=== PATIENT | female | born 1985 | race Caucasian/White ===

== ENCOUNTER 2018-02-05 20:20 | Inpatient (IN) | payer MEDICAID, OTHER ==
--- NOTE | 2018-02-05 20:44 | C.PDOC ---
History Of Present Illness <Darwin Lawler - Last Filed: 02/05/18 22:30> <MartymatthiasEfren - Last Filed: 02/06/18 01:02> 33-year-old josue benavides, presents to the emergency department pre-screened for detox from alcohol. Patient denies nausea/vomiting, SI/HI, or any other associated symptoms. Last drink was this morning. No other complaints at this time. ( Darwin Lawler) History Per: Patient History/Exam Limitations: no limitations Current Symptoms Are (Timing): Still Present <Darwin Lawler - Last Filed: 02/05/18 22:30> <Efren Green - Last Filed: 02/06/18 01:02> Time Seen by Provider: 02/05/18 20:31 Chief Complaint (Nursing): Substance Abuse Past Medical History Reviewed: Historical Data, Nursing Documentation, Vital Signs Surgical History: Cholecystectomy Family History: States: No Known Family Hx - Social History Hx Alcohol Use: Yes Hx Substance Use: Yes - Immunization History Hx Tetanus Toxoid Vaccination: No Hx Influenza Vaccination: No Hx Pneumococcal Vaccination: No <Darwin Lawler - Last Filed: 02/05/18 22:30> Vital Signs: Last Vital Signs Temp 98.6 F 02/05/18 23:45 Pulse 93 H 02/05/18 23:45 Resp 16 02/05/18 23:45 BP 112/75 02/05/18 23:45 Pulse Ox 98 02/05/18 23:45 Review Of Systems Constitutional: Negative for: Fever, Chills Cardiovascular: Negative for: Chest Pain, Palpitations Respiratory: Negative for: Shortness of Breath Gastrointestinal: Negative for: Nausea, Vomiting Musculoskeletal: Negative for: Back Pain Neurological: Negative for: Weakness, Numbness Psych: Negative for: Depression, Suicidal ideation, Withdrawal <Ciera Lawleril - Last Filed: 02/05/18 22:30> Physical Exam - Physical Exam Appears: Non-toxic, No Acute Distress Skin: Normal Color, Warm, Dry Head: Atraumatic, Normacephalic Eye(s): bilateral: Normal Inspection, PERRL, EOMI Nose: Normal Oral Mucosa: Moist Lips: Normal Appearing Neck: Normal ROM Cardiovascular: Rhythm Regular, No Murmur Respiratory: Normal Breath Sounds, No Decreased Breath Sounds, No Accessory Muscle Use Gastrointestinal/Abdominal: Soft, No Tenderness Back: Normal Inspection Extremity: Normal ROM, No Deformity, No Swelling Neurological/Psych: Oriented x3, Normal Speech <Darwin Lawler - Last Filed: 02/05/18 22:30> ED Course And Treatment - Laboratory Results Result Diagrams: 02/05/18 20:45 02/05/18 20:45 O2 Sat by Pulse Oximetry: 99 (RA) Pulse Ox Interpretation: Normal <Darwin Lawler - Last Filed: 02/05/18 22:30> - Laboratory Results Result Diagrams: 02/05/18 20:45 02/05/18 20:45 <Efren Green - Last Filed: 02/06/18 01:02> Medical Decision Making <Darwin Lawler - Last Filed: 02/05/18 22:30> <NormaValdi - Last Filed: 02/06/18 01:02> Medical Decision Making: Patient is medically cleared and stable for discharge. (Darwin Lawler) Disposition <Darwin Lawler - Last Filed: 02/05/18 22:30> Discussed With DrMiguelito: Danisha Albrecht Comment: accepted the pt on his service and took over the care at 1 AM Doctor Will See Patient In The: Hospital Counseled Patient/Family Regarding: Studies Performed, Diagnosis - Disposition Disposition Time: 01:01 - POA Present On Arrival: None <Efren Green - Last Filed: 02/06/18 01:02> - Disposition Disposition: HOSPITALIZED Condition: FAIR Forms: [facility] ([place]iberian) - Clinical Impression Clinical Impression: Alcohol abuse - Scribe Statement The provider has reviewed the documentation as recorded by the Scribe (Janna Calvert) <Darwin Lawler - Last Filed: 02/05/18 22:30> <Efren Green - Last Filed: 02/06/18 01:02> - Scribe Statement All medical record entries made by the Scribe were at my direction and personally dictated by me. I have reviewed the chart and agree that the record accurately reflects my personal performance of the history, physical exam, medical decision making, and the department course for this patient. I have also personally directed, reviewed, and agree with the discharge instructions and disposition. (Darwin Lawler) Decision To Admit <Darwin Lawler - Last Filed: 02/05/18 22:30> - Pt Status Changed To: Hospital Disposition Of: Inpatient - Admit Certification Admit to Inpatient:: After my assessment, the patient will require hospitalization for at least two midnights. This is because of the severity of symptoms shown, intensity of services needed, and/or the medical risk in this patient being treated as an outpatient. - InPatient: Physician Admission Certification: I certify that this patient requires 2 or more midnights of care for the following reason:: After my assessment, the patient will require hospitalization for at least two midnights. This is because of the severity of symptoms shown, intensity of services needed, and/or the medical risk in this patient being treated as an outpatient. - . Bed Request Type: Detox Admitting Physician: Danisha Albrecht <Efren Green - Last Filed: 02/06/18 01:02> - . Patient Diagnosis: Alcohol abuse
[2018-02-05 20:50] LABS: BASO # 0.1 K/uL (0.0-0.2); BASO % 1.1 % (0.0-2.0); EOS # 0.1 K/uL (0.0-0.7); EOS % 1.2 % (0.0-4.0); HEMOGLOBIN 12.8 g/dL (11.0-16.0); LYMPH # 2.9 K/uL (1.0-4.3); MEAN CELL VOLUME 84.9 fL (81.0-99.0); MEAN CORPUSCULAR HEMOGLOBIN 27.6 pg (27.0-31.0); MEAN CORPUSCULAR HGB CONC 32.5 g/dL (33.0-37.0); MEAN PLATELET VOLUME 7.7 fL (7.2-11.7); MONO # 0.6 K/uL (0.0-0.8); NEUT # 4.3 K/uL (1.8-7.0); NEUT % 54.7 % (50.0-75.0); RBC 4.65 Mil/uL (3.80-5.20); RED CELL DISTRIBUTION WIDTH 20.4 % (11.5-14.5); WHITE BLOOD COUNT 7.9 K/uL (4.8-10.8)
[2018-02-05 20:50] LABS: SQUAMOUS EPITHIAL 22 /hpf (0-5); URINE BILIRUBIN NEGATIVE (NEGATIVE); URINE BLOOD NEGATIVE (NEGATIVE); URINE CALCIUM OXALATE CRYSTALS OCC /hpf (<OCC); URINE CLARITY Hazy (Clear); URINE COLOR Yellow (YELLOW); URINE GLUCOSE (UA) NORMAL (Normal); URINE LEUKOCYTE ESTERASE TRACE Leu/uL (Negative); URINE PROTEIN NEGATIVE (NEGATIVE); URINE UROBILINOGEN NORMAL mg/dL (0.2-1.0)
[2018-02-05 20:54] LABS: HCG,QUALITATIVE URINE NEGATIVE (NEGATIVE)
[2018-02-05 21:04] LABS: ALB/GLOB RATIO 1.4 (1.0-2.1); ALBUMIN 4.3 g/dL (3.5-5.0); ALT/SGPT 20 U/L (9-52); AST/SGOT 26 U/L (14-36); BLOOD UREA NITROGEN 10 mg/dL (7-17); CALCIUM 8.3 mg/dl (8.6-10.4); GFR AFRICAN-AMERICAN > 60; GFR NON-AFRICAN AMERICAN > 60
[2018-02-05 21:07] LABS: BARBITURATES, UR NEGATIVE (NEGATIVE); BENZODIAZEPINES, UR NEGATIVE (NEGATIVE); OPIATES, UR NEGATIVE (NEGATIVE); PHENCYCLIDINE, UR NEGATIVE (NEGATIVE)
--- NOTE | 2018-02-06 01:16 | PCM.BM ---
<Leonid Davey - Last Filed: 02/06/18 01:15> Treatment Plan Problems - Problems identified on initial assessmt potential for alcohol withdrawal Date Initiated: 02/06/18 Time Initiated: 01:16 Status: Active - Milieu Protocol Maintain good personal hygiene: daily Encourage regular showers, daily Remind patient to perform daily oral care, daily Assist patient to perform ADL's Conduct patient checks and document Observation sheet: Q15 minutes Maintain personal safety: every shift Educate patient to report safety concerns to staff, every shift Monitor environment for contraband/sharps Medication safety: Monitor for expected outcome, potential side effects: every shift, Assess barriers to learning: every shift, Assess readiness for medication education: every shift <Lydia Mccallum - Last Filed: 02/06/18 15:18> Family Contact Family involvement: Famliy/SO not involved - Goals for Treatment Patient goals for treatment: Completye detox and transition to outoatient counseling and Vivitrol maintenance. Discharge/Continuing Care - Education Needs Education Needs: Patient Medication, Patient Diagnosis/Disease Process, Patient Coping Skills, Patient Anger Management skills, Patient Placement options, Patient Community resources - Discharge Discharge Criteria: No longer exhibiting s/s of withdrawal, Reduction of target symptoms Discharge to:: Home - Treatment Team Participation Patient/Family/SO Statement: 02/06/18 15:19 "I think I wanna try the Vivitrol shot..." Discussed with Family/SO: No Was Patient/Family/SO present at Treatment Team Meeting: Yes <Natasha Bashir - Last Filed: 02/06/18 15:40> - Diagnosis (1) Alcohol use disorder, severe, dependence Status: Acute Interventions: 02/06/18 15:40 * Assess 7x/week regarding severity of withdrawal * Educate regarding risks, benefits, side effects and alternatives of medications * Use Motivational Interviewing for abstinence * Use CBT for relapse prevention * Medication management for withdrawal symptoms * Encourage medication assisted treatment *
[2018-02-06] MEDS ORDERED: Benzocaine/Menthol (Cepacol) Lozenge PO PRN (03:09)
[2018-02-06] MEDS ORDERED: guaiFENesin DM 200 mg-20 mg/10 ml UD PO PRN (03:09)
[2018-02-06] MEDS ORDERED: Aluminum Hydroxide/Magnesium Hydroxide Susp (30 mL) PO PRN (03:09)
[2018-02-06] MEDS: Multiple Vitamins Tab PO SCH (09:13)
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
[2018-02-07] MEDS: Multiple Vitamins Tab PO SCH (10:02)
[2018-02-07 14:00] VITALS: RESP 18
--- NOTE | 2018-02-07 16:12 | PCM.PYCHPN ---
Psychiatric Progress Note - Psychiatric Progress Note Patient seen today, length of contact: 16 min Patient Chief Complaint: "Not well yet" Problems Identified/Issues Discussed: The pt is seen, chart reviewed, case discussed with staff. Support given, CBT and NM used briefly No new symptoms reported, improving slowly and needs more time No SEs from medications, risks discussed. After care discussed Medication Change: Yes (detox changes daily) Medical Record Reviewed: Yes Mental Status Examination - Cognitive Function Orientation: Person, Place, Situation, Time Memory: Intact Attention: WNL Concentration: WNL Association: WNL Fund of Knowledge: WNL - Mood Mood: Depressed, Anxious - Affect Affect: Constricted - Speech Speech: Appropriate - Formal Thought Process Formal Thought Process: No Impairment - Suicidal Ideation Suicidal Ideation: No - Homicidal Ideation Homicidal Ideation: No Goal/Treatment Plan - Goal/Treatment Plan Need for Continued Stay: Discharge may exacerbated symptoms, Severe functional impairment Progress Toward Problem(s) and Goals/Treatment Plan: Taper with librium Gabapentin for augmentation if needed As needed medications All risks, benefits and alternatives of the meds discussed, and the pt agreed and understood. Attend groups and activities Supportive therapy and psychoeducation [place] for abstinence CBT for relapse prevention Encourage MAT Refer to rehab or IOP, and self-help groups Smoking cessation with NM Nicotine patch if needed
[2018-02-07] MEDS ORDERED: Magnesium Hydroxide Susp 30 ml UD PO PRN (17:15)
[2018-02-08] MEDS: Multiple Vitamins Tab PO SCH (09:59)
--- NOTE | 2018-02-09 00:06 | PCM.PYCHPN ---
Psychiatric Progress Note - Psychiatric Progress Note Patient seen today, length of contact: 16 min Patient Chief Complaint: "Anxious" Problems Identified/Issues Discussed: The pt is seen, chart reviewed, case discussed with staff. The pt is compliant with medications and reports no side-effects. Naltrexone use discussed, waldemar added for anx. Symptoms are improving but needs more time to stabilize. After care discussed, support and psychoeducation given. Medication Change: Yes (detox changes daily) Medical Record Reviewed: Yes Mental Status Examination - Cognitive Function Orientation: Person, Place, Situation, Time Memory: Intact Attention: WNL Concentration: WNL Association: WNL Fund of Knowledge: WNL - Mood Mood: Depressed, Anxious - Affect Affect: Constricted - Speech Speech: Appropriate - Formal Thought Process Formal Thought Process: No Impairment - Suicidal Ideation Suicidal Ideation: No - Homicidal Ideation Homicidal Ideation: No Goal/Treatment Plan - Goal/Treatment Plan Need for Continued Stay: Discharge may exacerbated symptoms, Severe functional impairment Progress Toward Problem(s) and Goals/Treatment Plan: Taper with librium Gabapentin for augmentation Naltrexone for cravings As needed medications All risks, benefits and alternatives of the meds discussed, and the pt agreed and understood. Attend groups and activities Supportive therapy and psychoeducation [place] for abstinence CBT for relapse prevention Encourage MAT Refer to rehab or IOP, and self-help groups Smoking cessation with [place] Nicotine patch if needed Estimated Date of D/C: 02/09/18
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
[2018-02-09] MEDS: Multiple Vitamins Tab PO SCH (09:31)
[2018-02-09 10:29] VITALS: BP 105/67; PULSE 101; TEMP 98.4; O2SAT 98
== END 2018-02-09 10:00 | DRG 750 ==
LOC: C.ER 20:20 → C.7D 02-06 01:00
PROVIDERS: ADMIT Psychiatry & Neurology Psychiatry; ATTEND Psychiatry & Neurology Psychiatry
PROC: HZ2ZZZZ Detoxification Services for Substance Abuse Treatment (ICD-10-PCS; principal; 2018-02-06)
PROC: HZ59ZZZ Individual Psychotherapy for Substance Abuse Treatment, Supportive (ICD-10-PCS; 2018-02-06)
PROC: GZ3ZZZZ Medication Management (ICD-10-PCS; 2018-02-06)
PROC: GZHZZZZ Group Psychotherapy (ICD-10-PCS; 2018-02-06)
PROC: HZ90ZZZ Pharmacotherapy for Substance Abuse Treatment, Nicotine Replacement (ICD-10-PCS; 2018-02-06)
PROC: HZ46ZZZ Group Counseling for Substance Abuse Treatment, Psychoeducation (ICD-10-PCS; 2018-02-06)
PROC: GZ56ZZZ Individual Psychotherapy, Supportive (ICD-10-PCS; 2018-02-06)
DX: F10.230 Alcohol dependence with withdrawal, uncomplicated (principal); F33.2 Major depressive disorder, recurrent severe without psychotic features; F17.210 Nicotine dependence, cigarettes, uncomplicated; F34.1 Dysthymic disorder; J45.909 Unspecified asthma, uncomplicated; Z62.810 Personal history of physical and sexual abuse in childhood; Z91.5 Personal history of self-harm